=== PATIENT | female | born 1960 | race Caucasian/White ===

== ENCOUNTER 2018-10-29 14:38 | Emergency (ER) | payer OTHER ==
[~2018-10-29] VITALS: Ht 167.6 cm; Wt 90.7 kg
[2018-10-29 14:38] VITALS: BP 88/51
--- NOTE | 2018-10-29 14:40 | NUR ---
ED Nurse Note: brought in by RA 63 from surgical center due to CP 2/10 at rest, nonradiating s/p left hip surery about 40min ago. Per EMS, 2mg of versed was given by staffs at surgical center and 326mg Aspirin and 0.4mg Nitro given by EMS. Dr. Erazo is aware of pt's low BP of 88/51. Per pt, she does not have any history of cardiac issues.
--- NOTE | 2018-10-29 14:45 | NUR ---
ED Nurse Note: blood specimens and urine sample sent down to the lab.
--- NOTE | 2018-10-29 14:46 | Emergency Room Report ---
History of Present Illness General Chief Complaint: Chest Pain Source: Patient Present Illness HPI 58-year-old female sent in by surgery Center after increased chest discomfort. Patient had been undergoing a outpatient surgery and subsequently developed chest discomfort after awaking from the procedure. Patient was noted to have prior history of gastric sleeve surgery. Patient had been given aspirin and nitroglycerin by paramedics. She was noted to have improved pain after treatment. Patient was initially noted to be hypotensive.Patient had EKG done by EMS which showed no evidence of acute myocardial injury. Patient reportedly had been given 150 cc of propofol and 100 mcg of fentanyl during the procedure. Patient was noted to have ropivacaine 20cc spinal block. Patient was subsequently given 2 mg of Versed after onset of chest pain. She seem to be somewhat more calm afterward.Patient reported having some initial nausea after the procedure but denies any current nausea now. Patient reports having improvement in her symptoms.Patient is noted to have prior history of gastric sleeve and had been noted to be from [place]. Allergies: Coded Allergies: No Known Allergies (Unverified , 10/29/18) Patient History Past Medical History: see triage record Reviewed Nursing Documentation: PMH: Agreed; PSxH: Agreed Nursing Documentation-PMH Past Medical History: No History, Except For Hx Hypertension: Yes Review of Systems All Other Systems: negative except mentioned in HPI Physical Exam Vital Signs Date Time Temp Pulse Resp B/P (MAP) Pulse Ox O2 Delivery O2 Flow Rate FiO2 10/29/18 14:30 98.1 72 15 91/54 98 Room Air Sp02 EP Interpretation: reviewed, normal General Appearance: normal inspection, well appearing, no apparent distress, alert, GCS 15, Chronically Ill Head: atraumatic ENT: normal ENT inspection, hearing grossly normal, normal voice Neck: normal inspection, full range of motion, supple, no bony tend Respiratory: normal inspection, no respiratory distress, no retraction, no wheezing Cardiovascular #1: regular rate, rhythm, no edema Gastrointestinal: normal inspection, normal bowel sounds, non tender, soft, no guarding, no hernia Genitourinary: no CVA tenderness Musculoskeletal: normal inspection, back normal, normal range of motion Neurologic: normal inspection, alert, responsive, speech normal Psychiatric: normal inspection, judgement/insight normal, mood/affect normal Skin: normal inspection, normal color, no rash Medical Decision Making Diagnostic Impression: Primary Impression: Chest pain Additional Impression: Adverse reaction to anesthetic agent ER Course Patient presented for chest pain. Differential diagnosis included but was not limited to acute coronary syndrome, pulmonary embolism, pneumonia, aortic dissection, shingles, pneumothorax, aortic dissection, esophageal rupture, pericarditis. Patient was noted to have unremarkable laboratory testing. Patient had recent surgery and d-dimer was notably elevated which is expected. Patient does not have any preceding symptoms consistent with deep venous thrombosis. Patient had recent surgical procedure and had some continued postoperative pain from the procedure.Patient was offered CT imaging due to elevated d-dimer which she declined. Patient was noted to have no chest discomfort after IV fluids and time.Patient was discharged home. She was advised to follow-up with her orthopedics Labs Test 10/29/18 15:05 White Blood Count 11.6 K/UL (4.8-10.8) Red Blood Count 4.93 M/UL (4.20-5.40) Hemoglobin 14.7 G/DL (12.0-16.0) Hematocrit 44.3 % (37.0-47.0) Mean Corpuscular Volume 90 FL (80-99) Mean Corpuscular Hemoglobin 29.8 PG (27.0-31.0) Mean Corpuscular Hemoglobin Concent 33.1 G/DL (32.0-36.0) Red Cell Distribution Width 12.6 % (11.6-14.8) Platelet Count 233 K/UL (150-450) Mean Platelet Volume 7.7 FL (6.5-10.1) Neutrophils (%) (Auto) 67.6 % (45.0-75.0) Lymphocytes (%) (Auto) 21.8 % (20.0-45.0) Monocytes (%) (Auto) 8.5 % (1.0-10.0) Eosinophils (%) (Auto) 1.3 % (0.0-3.0) Basophils (%) (Auto) 0.8 % (0.0-2.0) D-Dimer 3.51 mg/L FEU (0.00-0.49) Urine Color Arleen Urine Appearance Clear Urine pH 6 (4.5-8.0) Urine Specific Bruno 1.020 (1.005-1.035) Urine Protein 2+ (NEGATIVE) Urine Glucose (UA) Negative (NEGATIVE) Urine Ketones Negative (NEGATIVE) Urine Blood Negative (NEGATIVE) Urine Nitrite Negative (NEGATIVE) Urine Bilirubin Negative (NEGATIVE) Urine Ictotest Negative (NEGATIVE) Urine Urobilinogen Normal MG/DL (0.0-1.0) Urine Leukocyte Esterase Negative (NEGATIVE) Urine RBC 0-2 /HPF (0 - 2) Urine WBC 0-2 /HPF (0 - 2) Urine Squamous Epithelial Cells Few /LPF (NONE/OCC) Urine Bacteria Few /HPF (NONE) Sodium Level 139 MMOL/L (136-145) Potassium Level 3.8 MMOL/L (3.5-5.1) Chloride Level 104 MMOL/L (98-107) Carbon Dioxide Level 27 MMOL/L (21-32) Anion Gap 8 mmol/L (5-15) Blood Urea Nitrogen 16 mg/dL (7-18) Creatinine 0.8 MG/DL (0.55-1.30) Estimat Glomerular Filtration Rate > 60 mL/min (>60) Glucose Level 101 MG/DL (74-106) Calcium Level 9.0 MG/DL (8.5-10.1) Total Bilirubin 0.4 MG/DL (0.2-1.0) Aspartate Amino Transf (AST/SGOT) 32 U/L (15-37) Alanine Aminotransferase (ALT/SGPT) 52 U/L (12-78) Alkaline Phosphatase 124 U/L (46-116) Total Creatine Kinase 74 U/L (26-308) Creatine Kinase MB 0.5 NG/ML (0.0-3.6) Creatine Kinase MB Relative Index 0.6 Troponin I 0.000 ng/mL (0.000-0.056) Pro-B-Type Natriuretic Peptide 14 pg/mL (0-125) Total Protein 7.9 G/DL (6.4-8.2) Albumin 3.7 G/DL (3.4-5.0) Globulin 4.2 g/dL Albumin/Globulin Ratio 0.9 (1.0-2.7) Lipase 101 U/L (73-393) EKG Diagnostic Results Rate: normal - 69 Rhythm: NSR ST Segments: no acute changes Last Vital Signs Date Time Temp Pulse Resp B/P (MAP) Pulse Ox O2 Delivery O2 Flow Rate FiO2 10/29/18 14:30 98.1 72 15 91/54 98 Room Air Status: improved Disposition: HOME, SELF-CARE Condition: Stable Darrell Erazo MD Oct 29, 2018 14:46
--- NOTE | 2018-10-29 15:17 | NUR ---
ED Nurse Note: Pt's BP is now 106/71 and CP is decreased to 1/10. Dr. Erazo is aware.
[2018-10-29 15:39] LABS: BASOPHILS % (AUTO) 0.8 % (0.0-2.0); EOSINOPHILS % (AUTO) 1.3 % (0.0-3.0); HEMATOCRIT 44.3 % (37.0-47.0); HEMOGLOBIN 14.7 G/DL (12.0-16.0); LYMPHOCYTES % (AUTO) 21.8 % (20.0-45.0); MEAN CORPUSCULAR VOLUME 90 FL (80-99); MONOCYTES % (AUTO) 8.5 % (1.0-10.0); NEUTROPHILS % (AUTO) 67.6 % (45.0-75.0); PLATELET COUNT 233 K/UL (150-450); RED BLOOD COUNT 4.93 M/UL (4.20-5.40); RED CELL DISTRIBUTION WIDTH 12.6 % (11.6-14.8); WHITE BLOOD COUNT 11.6 K/UL (4.8-10.8)
[2018-10-29 15:41] LABS: APPEARANCE,URINE CLEAR; BILIRUBIN, URINE NEGATIVE (NEGATIVE); COLOR,URINE AMBER; GLUCOSE, URINE (UA) NEGATIVE (NEGATIVE); KETONES,URINE NEGATIVE (NEGATIVE); LEUKOCYTE ESTERASE ,URINE NEGATIVE (NEGATIVE); NITRITE,URINE NEGATIVE (NEGATIVE); PH,URINE 6 (4.5-8.0); PROTEIN,URINE 2+ (NEGATIVE); UROBILINOGEN,URINE NORMAL MG/DL (0.0-1.0)
[2018-10-29 15:47] LABS: ANION GAP 8 mmol/L (5-15); BLOOD UREA NITROGEN 16 mg/dL (7-18); CARBON DIOXIDE 27 MMOL/L (21-32); CHLORIDE 104 MMOL/L (98-107); CREATININE 0.8 MG/DL (0.55-1.30); POTASSIUM 3.8 MMOL/L (3.5-5.1); SODIUM 139 MMOL/L (136-145)
--- NOTE | 2018-10-29 15:49 | Diagnostic Imaging Report ---
Indication: Dyspnea Comparison: None A single view chest radiograph was obtained. Findings: Cardiomediastinal appearance is within normal limits for age. The lungs are clear. Pulmonary vascularity is appropriate. The diaphragmatic contour is smooth and costophrenic angles are sharp. No pleural effusions are identified. The bones are unremarkable. Impression: No acute findings
[2018-10-29 16:03] LABS: ALANINE AMINOTRANSFERASE 52 U/L (12-78); ALBUMIN 3.7 G/DL (3.4-5.0); ALBUMIN/GLOBULIN RATIO 0.9 (1.0-2.7); ALKALINE PHOSPHATASE 124 U/L (46-116); ASPARTATE AMINO TRANSFERASE 32 U/L (15-37); BILIRUBIN,TOTAL 0.4 MG/DL (0.2-1.0); CKMB 0.5 NG/ML (0.0-3.6); CREATINE KINASE 74 U/L (26-308)
[2018-10-29] MEDS ORDERED: FAMOTIDINE40 MG ORAL (16:21)
[2018-10-29] MEDS ORDERED: BENADRYL25 MG ORAL (16:21)
[2018-10-29] MEDS ORDERED: NAPROXEN375 M2 ORAL (16:21)
[2018-10-29] MEDS ORDERED: LISINOPRIL-HCT1 EAC2 ORAL (16:21)
[2018-10-29] MEDS ORDERED: ZOFRAN ODT8 MG ORAL (16:21)
[2018-10-29] MEDS ORDERED: NORCO 7.5/3251 EA ORAL (16:21)
[2018-10-29 16:35] VITALS: BP 101/61
[2018-10-29 17:00] VITALS: BP 113/61
[2018-10-29 17:05] VITALS: BP 112/53
[2018-10-29] MEDS ORDERED: Morphine Sulfate 2mg/ml Inj ONE (17:07)
--- NOTE | 2018-10-29 17:08 | NUR ---
ED Nurse Note: pt requested to receive IV pain med prior to discharge, pain 7/[address] notified dr. erazo. 2mg morphine IV given per Dr. Erazo's verbal order. Pt's family member are at the bedside and the family members will drive pt home.
[2018-10-29 17:10] VITALS: BP 122/70
[2018-10-29] MEDS ORDERED: Morphine Sulfate 2mg/ml Inj IVP ONE (17:15)
--- NOTE | 2018-10-29 17:22 | NUR ---
ED Nurse Note: Pt cleared DC by Dr. Erazo. Pt is A/Ox4, VSS, DC instruction and prescriptions given, pt verbalized understanding. IV and ID wristband removed. All belongings given to pt. RN assisted pt out of ER in wheelchair. Pt's family member had clutches from surgical center.
[2018-10-29 17:25] VITALS: BP 112/53
== END 2018-10-29 17:26 | disposition home or self-care (01) ==
LOC: EDBD 14:38 → EMR 14:49
DX: R07.9 Chest pain, unspecified (principal); T88.59XA Other complications of anesthesia, initial encounter
CPT/HCPCS: 36415; 71045; 80053; 81003; 82550; 82553; 83690; 83880; 84484; 85025; 85379; 96374; 96375; 99284; J2270; S0028